=== PATIENT | male | born 1995 ===

== ENCOUNTER 2017-04-18 23:59 | Emergency (ER) | payer OTHER ==
[2017-04-19 00:05] VITALS: O2SAT 99
[2017-04-19 00:15] VITALS: TEMP 36.4
--- NOTE | 2017-04-19 00:46 | EMERGENCY ROOM VISIT NOTE ---
History Report prepared by Suresh: Yonathan Nascimento Under the Supervision of: Dr. Nicole Rodriguez M.D. First contact with patient: 00:21 Chief Complaint: UNRESPONSIVE Stated Complaint: UNRESPONSIVE/INTOXICATED Nursing Triage Summary: Pt brought BLS from his dorm, was found unresponsive in the bathroom, when he was awakened he vomitted, has vomitted several times, pt uncooperative, combative, spitting, police on scene and arrive with pt at hospital. History of Present Illness The patient is a 21 year old male who presents to the Emergency Room with complaints of alcohol intoxication occurring earlier tonight. The patient was found in his dorm unresponsive. Once he was woken up he vomited several times. EMS reports uncooperative behavior, with police escort. On my evaluation, pt is resting on aspiration precautions. History is limited secondary to intoxication. Source of History: nursing staff History Limited By: intoxication Onset: earlier tonight Position: other (global) Quality: other (unresponsive) Associated Symptoms: + vomiting Review of Systems See HPI for pertinent positives & negatives. A total of 10 systems reviewed and were otherwise negative. Past Medical & Surgical Limited secondary to intoxication Family History Limited secondary to intoxication Social History Smoking Status: Current Every Day Smoker Marital Status: single Occupation Status: [employer] student Current/Historical Medications Unable to Obtain Active Prescriptions or Reported Meds Physical Exam Vital Signs Date Time Temp Pulse Resp B/P (MAP) Pulse Ox O2 Delivery O2 Flow Rate FiO2 04/19/17 10:06 95 24 124/61 99 04/19/17 07:57 118 16 130/73 98 Room Air 04/19/17 07:03 83 04/19/17 06:23 90 16 91/57 94 Room Air 04/19/17 05:55 87 16 107/60 98 Room Air 04/19/17 04:31 103 16 110/68 98 Room Air 04/19/17 04:13 113 04/19/17 03:51 120 16 129/59 98 Room Air 04/19/17 02:24 83 16 89/48 94 Room Air 04/19/17 02:00 84 16 85/49 96 Room Air 04/19/17 01:17 103 16 106/65 100 Room Air 04/19/17 00:15 36.4 95 20 129/99 97 Room Air 04/19/17 00:10 113 04/19/17 00:05 99 Room Air 04/19/17 00:05 96 20 129/99 99 Room Air Physical Exam Vital signs reviewed. General: Odor of EtOH in the breath, disheveled 21-year-old male. No signs of trauma. HEENT: Mild scleral injection bilaterally, PERRLA, neck supple, dry mucous membranes. Cardiovascular: Regular rate and rhythm, no extra sounds. Pulmonary: Clear to auscultation bilaterally, normal work of breathing. Abdomen: Soft, nontender, nondistended, positive bowel sounds. Musculoskeletal: Subcentimeter abrasion to the lower lumbar back. Upper and lower extremities atraumatic, no peripheral edema Skin: Warm, dry, no rash. Atraumatic. Neurologic: Patient is currently nonverbal. Medical Decision & Procedures ER Provider Diagnostic Interpretation: Radiology results as stated below per my review and radiologist interpretation: CT HEAD WITHOUT CONTRAST (CT) CLINICAL HISTORY: Acute change in mental status. COMPARISON STUDY: No previous studies for comparison. TECHNIQUE: Axial CT of the brain is performed from the vertex to the skull base. IV contrast was not administered for this examination. A dose lowering technique was utilized adhering to the principles of ALARA. CT DOSE: 537.48 mGy.cm FINDINGS: No intra or extra-axial mass lesions are visualized. There is no CT evidence of acute cortical infarction. There is no evidence of midline shift. There is no acute hemorrhage. No calvarial fractures are visualized. There is no evidence of pathologic ventricular dilatation. There is no evidence of acute sinusitis IMPRESSION: Normal noncontrast head CT. Electronically signed by: Terry Jay M.D. 04/19/2017 6:27 AM Dictated Date/Time: 04/19/2017 6:26 AM Laboratory Results Test 04/19/17 00:15 Ethyl Alcohol mg/dL 352.9 mg/dl (0-3) Laboratory results per my review. ED Course 0021: Past medical records reviewed. The patient was evaluated in room A3. A complete history and physical examination was performed. 0716: The patient was awake, and I discussed his discharge. Medical Decision The differential diagnosis of the patient's presentation includes alcohol ingestion, illicit drug use, trauma, and dehydration. This pt was evaluated and appeared to be heavily intoxicated. He was unable to awaken with verbal and physical stimuli. Given unknown events, head CT was performed. This is negative. ETOH is 352.9. Pt was observed until her reached a more sober state. He was unable to reach a sober ride and was d/c with calculated AMINA of less than 100 to an uber. Medication Reconcilliation Current Medication List: was personally reviewed by me Blood Pressure Screening Patient's blood pressure: Normal blood pressure Impression Primary Impression: Alcohol intoxication Scribe Attestation The scribe's documentation has been prepared under my direction and personally reviewed by me in its entirety. I confirm that the note above accurately reflects all work, treatment, procedures, and medical decision making performed by me. Departure Information Dispostion Home / Self-Care Prescriptions Unable to Obtain Active Prescriptions or Reported Meds Forms HOME CARE DOCUMENTATION FORM, IMPORTANT VISIT INFORMATION, WORK / SCHOOL INSTRUCTIONS Patient Instructions [facility]: [employer] Students and Alcohol Related Visits, My [facility] Additional Instructions Diagnosis: Alcohol intoxication Drink plenty of clear liquids, such as water or Gatorade. Tylenol 650 mg every 6 hours as needed for pain. Avoid excessive alcohol consumption. Follow-up with [facility] as directed. Return to emergency for worsening of symptoms or medical concerns.
--- NOTE | 2017-04-19 06:28 | DIAGNOSTIC IMAGING REPORT ---
CT HEAD WITHOUT CONTRAST (CT) CLINICAL HISTORY: Acute change in mental status. COMPARISON STUDY: No previous studies for comparison. TECHNIQUE: Axial CT of the brain is performed from the vertex to the skull base. IV contrast was not administered for this examination. A dose lowering technique was utilized adhering to the principles of ALARA. CT DOSE: 537.48 mGy.cm FINDINGS: No intra or extra-axial mass lesions are visualized. There is no CT evidence of acute cortical infarction. There is no evidence of midline shift. There is no acute hemorrhage. No calvarial fractures are visualized. There is no evidence of pathologic ventricular dilatation. There is no evidence of acute sinusitis IMPRESSION: Normal noncontrast head CT. Electronically signed by: Terry Jay M.D. 04/19/2017 6:27 AM Dictated Date/Time: 04/19/2017 6:26 AM
[2017-04-19 10:06] VITALS: BP 124/61; PULSE 95; O2SAT 99
== END 2017-04-19 10:07 | disposition home or self-care (01) ==
LOC: C.EDA 04-19 00:01 → EDBD 04-19 00:01 → C.EDA 04-19 10:07
DX: F10.120 Alcohol abuse with intoxication, uncomplicated (principal); Y90.8 Blood alcohol level of 240 mg/100 ml or more; F17.210 Nicotine dependence, cigarettes, uncomplicated; S30.810A Abrasion of lower back and pelvis, initial encounter; X58.XXXA Exposure to other specified factors, initial encounter